=== PATIENT | male | born 1990 | race Caucasian/White ===

== ENCOUNTER 2020-04-18 19:23 | Emergency (ER) | payer SELFPAY ==
[~2020-04-18] VITALS: Ht 190.5 cm; Wt 69.0 kg
[2020-04-18] MEDS ORDERED: ACETAMINOPHEN 325MG TABLET PO ONE (20:45)
[2020-04-18] MEDS ORDERED: IBUPROFEN 400MG TABLET PO ONE (20:45)
[2020-04-18] MEDS ORDERED: BACITRACIN ZINC OINT UDPKT TOP ONE (20:45)
[2020-04-18] MEDS ORDERED: LIDOCAINE 1%/EPI 1:100,000 10 ML VIAL IJ ONE (20:45)
[2020-04-18] MEDS ORDERED: TETANUS, DIPHTHERIA, PERTUSSIS VAC/PF 0.5ML (>7YR OLD) IM ONE (20:45)
[2020-04-18] MEDS ORDERED: NEOM28.37 TP (22:19)
[2020-04-18] MEDS ORDERED: ACET650T37 PO (22:19)
[2020-04-18 22:37] VITALS: BP 148/79
== END 2020-04-18 22:38 | disposition home or self-care (01) ==
LOC: ER 19:23
DX: S61.411A Laceration without foreign body of right hand, initial encounter (principal); F15.10 Other stimulant abuse, uncomplicated; F17.210 Nicotine dependence, cigarettes, uncomplicated; X99.1XXA Assault by knife, initial encounter; Y93.89 Activity, other specified; Y92.488 Other paved roadways as the place of occurrence of the external cause
CPT/HCPCS: 12002; 90471; 90715; 99283; J3490; Z7610